=== PATIENT | male | born 1990 | race Caucasian/White ===

== ENCOUNTER → 2018-03-10 | Outpatient (CLI) | payer OTHER | LOC: M SLEEP 18:59 | DX: G47.30 Sleep apnea, unspecified (principal) | CPT/HCPCS: 95810 ==

== ENCOUNTER → 2018-03-22 | Outpatient (REF) | payer OTHER ==
[2018-03-22 18:30] LABS: BASO # 0.1 10^3/uL (0.0-0.2); EOS # 0.1 10^3/uL (0.0-0.50); EOS % 1.7 % (0.0-3.0); HEMATOCRIT 47.9 % (42.0-52.0); HEMOGLOBIN 16.5 g/dl (13.5-17.5); IMMATURE GRANULOCYTE % 0.3 % (0-3.0); LYMPH # 2.2 10^3/uL (1.5-6.5); MEAN CORPUSCULAR HEMOGLOBIN 30.3 pg (27.0-33.0); MEAN CORPUSCULAR HGB CONC 34.4 g/dl (32.0-36.5); MEAN CORPUSCULAR VOLUME 88.1 fl (80.0-96.0); MONO # 0.6 10^3/uL (0.0-0.8); MONO % 7.3 % (0.0-5.0); NEUTROPHILS # 4.6 10^3/uL (1.8-7.7); NEUTROPHILS % 60.7 % (36.0-66.0); PLATELET COUNT, AUTOMATED 274 10^3/uL (150-450); RED BLOOD COUNT 5.44 10^6/uL (4.30-6.10); RED CELL DISTRIBUTION WIDTH 12.1 % (11.5-14.5); WHITE BLOOD COUNT 7.6 10^3/uL (4.0-10.0)
[2018-03-22 19:10] LABS: ALBUMIN 4.4 GM/DL (3.2-5.2); ALBUMIN/GLOBULIN RATIO 1.33 (1.00-1.93); ALKALINE PHOSPHATASE 69 U/L (45-117); ALT/SGPT 27 U/L (12-78); ANION GAP 10 MEQ/L (8-16); AST/SGOT 21 U/L (7-37); BILIRUBIN,TOTAL 0.3 MG/DL (0.2-1.0); BLOOD UREA NITROGEN 11 MG/DL (7-18); CALCIUM LEVEL 8.7 MG/DL (8.5-10.1); CARBON DIOXIDE LEVEL 26 MEQ/L (21-32); CHLORIDE LEVEL 105 MEQ/L (98-107); FERRITIN 55 NG/ML (26-388); FREE THYROXINE INDEX 3.8 % (1.4-3.8); GLOMERULAR FILTRATION RATE > 60.0 (>60); GLUCOSE, FASTING 72 MG/DL (70-100); IRON (FE) 71 UG/DL (65-175); PERCENT SATURATION 21.5 % (19.7-50.0); POTASSIUM SERUM 4.4 MEQ/L (3.5-5.1); SODIUM LEVEL 141 MEQ/L (136-145); T UPTAKE 33 % (33-40); THYROXINE (T4) 11.4 UG/DL (4.5-12.0); TOTAL IRON BINDING CAPACITY 330 UG/DL (250-450); TOTAL PROTEIN 7.7 GM/DL (6.4-8.2)
[2018-03-22 19:13] LABS: FOLATE 14.5 NG/ML
[2018-03-26 00:07] LABS: Lyme Disease IgG/IgM Antibodie <0.91 ISR (0.00-0.90); Lyme Disease IgM Ab Quantitati <0.80 index (0.00-0.79)
== END ==
LOC: M LAB REF 17:32
DX: G47.30 Sleep apnea, unspecified (principal)